=== PATIENT | female | born 1975 | race Caucasian/White ===

== ENCOUNTER 2019-05-19 15:38 | Emergency (ER) | payer SELFPAY ==
[~2019-05-19] VITALS: Ht 165.1 cm; Wt 62.0 kg
[2019-05-19] MEDS ORDERED: MORPHINE SULFATE 4 MG/ML CPJ (NOT FOR IM USE) IV STA (18:05)
[2019-05-19] MEDS ORDERED: SODIUM CHLORIDE 0.9% 1,000 ML IV ONE ×2 (18:05→21:11)
[2019-05-19] MEDS ORDERED: ONDANSETRON HCL 4MG/2ML INJ IV STA (18:05)
[2019-05-19 18:19] LABS: CHLORIDE 109 mEq/L (98-107)
[2019-05-19 18:21] LABS: HCG SCREEN NEGATIVE
[2019-05-19 18:23] LABS: BASOPHILS % 0.5 % (0.0-2.0); EOSINOPHILS % 1.2 % (0.0-5.0); HEMATOCRIT. 40.5 % (36.0-48.0); HEMOGLOBIN. 13.6 g/dL (12.0-16.0); MEAN CORPUSCULAR HEMOGLOBIN 30.2 pg (28.0-32.0); MEAN CORPUSCULAR VOLUME 90.2 fL (81.0-99.0); MEAN PLATELET VOLUME 8.9 fl (7.4-10.4); MONOCYTES % 5.7 % (2.0-8.0); NEUTROPHILS % 61.6 % (40.0-76.0); PLATELET 220 x1000/uL (130-400); RED BLOOD CELL COUNT 4.49 mill/uL (4.2-5.4); RED CELL DISTRIBUTION WIDTH 13.2 % (11.6-14.6)
[2019-05-19 18:24] LABS: PARTIAL THROMBOPLASTIN TIME 28.5 sec (23.4-31.0); PROTHROMBIN TIME 10.6 sec (9.6-11.0)
[2019-05-19] MEDS ORDERED: ONDANSETRON HCL 4MG/2ML INJ ONE (20:00)
[2019-05-19] MEDS ORDERED: ONDANSETRON HCL 4MG/2ML INJ IV ONE (20:00)
[2019-05-19 22:51] VITALS: BP 112/70
[2019-05-19] MEDS ORDERED: IOHEXOL-300 100 ML BOTTLE ONE (23:28)
== END 2019-05-19 22:53 | disposition home or self-care (01) ==
LOC: ER 16:03
DX: R07.89 Other chest pain (principal); M54.2 Cervicalgia; M54.5 Low back pain; M25.562 Pain in left knee; V43.62XA Car passenger injured in collision with other type car in traffic accident, initial encounter; W22.12XA Striking against or struck by front passenger side automobile airbag, initial encounter; Y93.89 Activity, other specified; Y92.488 Other paved roadways as the place of occurrence of the external cause
CPT/HCPCS: 36415; 70450; 71045; 71260; 72100; 72125; 73560; 74177; 80053; 83690; 84484; 84703; 85025; 85610; 85730; 93005; 96361; 96374; 96375; 96376; 99284; J2270; J2405; J7030; Q9967

== ENCOUNTER 2019-11-04 13:24 | Inpatient (IN) | payer BC, MEDICAID ==
[~2019-11-04] VITALS: Ht 165.1 cm; Wt 56.0 kg
[2019-11-04] MEDS ORDERED: LORAZEPAM 2MG/ML CPJ IV ONE (14:00)
[2019-11-04 14:09] LABS: BASOPHILS % 0.6 % (0.0-2.0); EOSINOPHILS % 1.5 % (0.0-5.0); HEMATOCRIT. 41.8 % (36.0-48.0); HEMOGLOBIN. 14.2 g/dL (12.0-16.0); LYMPHOCYTES % 38.4 % (20.0-50.0); MEAN CORPUSCULAR HEMOGLOBIN 30.5 pg (28.0-32.0); MEAN CORPUSCULAR VOLUME 89.7 fL (81.0-99.0); MEAN PLATELET VOLUME 8.5 fl (7.4-10.4); MONOCYTES % 10.2 % (2.0-8.0); NEUTROPHILS % 49.3 % (40.0-76.0); PLATELET 226 x1000/uL (130-400); RED BLOOD CELL COUNT 4.66 mill/uL (4.2-5.4); RED CELL DISTRIBUTION WIDTH 13.4 % (11.6-14.6)
[2019-11-04 14:14] LABS: CHLORIDE 107 mEq/L (98-107)
[2019-11-04] MEDS ORDERED: ALTEPLASE 100MG/VIAL IV NR (14:15)
[2019-11-04] MEDS ORDERED: *NO ASPIRIN X 24 HOURS XX SCH (14:15)
[2019-11-04] MEDS ORDERED: CONTAINER EMPTY IV SCH (14:16)
[2019-11-04] MEDS ORDERED: ALTEPLASE IV SCH (14:16)
[2019-11-04 14:17] LABS: HCG SCREEN NEGATIVE; PROTHROMBIN TIME 10.4 sec (9.6-11.0)
[2019-11-04 14:19] LABS: ETHANOL BLOOD < 10 mg/dL
[2019-11-04 14:21] LABS: LDL CHOLESTEROL 90 mg/dL (5-100)
[2019-11-04] MEDS ORDERED: IOHEXOL-350 100 ML BOTTLE ONE (15:24)
[2019-11-04 15:48] LABS: CLARITY URINE CLEAR (CLEAR); COLOR URINE YELLOW (YELLOW); KETONES URINE NEGATIVE (NEGATIVE); LEUKOCYTE ESTERASE URINE TRACE (NEGATIVE); NITRITE URINE NEGATIVE (NEGATIVE); OCCULT BLOOD URINE NEGATIVE (NEGATIVE); PH URINE 7.5 (4.5-8.0); PROTEIN URINE NEGATIVE (NEGATIVE); SPECIFIC GRAVITY URINE 1.004 (1.005-1.030); UROBILINOGEN URINE 0.2 E.U./dL (0.2-1.0)
[2019-11-04 16:06] LABS: *AMPHETAMINES SCREEN URINE NEGATIVE (NEGATIVE); *BARBITURATES SCREEN URINE NEGATIVE (NEGATIVE); *BENZODIAZEPINES SCREEN URINE NEGATIVE (NEGATIVE); *COCAINE SCREEN URINE NEGATIVE (NEGATIVE); METHADONE URINE SCREEN NEGATIVE (NEGATIVE); OPIATES URINE SCREEN NEGATIVE (NEGATIVE)
[2019-11-04 16:07] LABS: CANNABINOID URINE SCREEN NEGATIVE (NEGATIVE); PHENCYCLIDINE URINE SCREEN NEGATIVE (NEGATIVE)
[2019-11-05] VITALS (55 sets, daily range): BP systolic 78–126; BP diastolic 48–72
[2019-11-05] MEDS: DEXT 5%/0.45% NACL 1000ML 1,000 ML IV SCH ×2 (05:23→18:01)
[2019-11-05 07:53] LABS: CHLORIDE 109 mEq/L (98-107)
[2019-11-05 07:58] LABS: HEMATOCRIT 41.5 % (36.0-48.0); HEMOGLOBIN 14.2 g/dL (12.0-16.0); MEAN CORPUSCULAR HEMOGLOBIN 30.9 pg (28.0-32.0); MEAN CORPUSCULAR VOLUME 90.3 fL (81.0-99.0); PLATELET 212 x1000/uL (130-400); RED BLOOD CELL COUNT 4.59 mill/uL (4.2-5.4); RED CELL DISTRIBUTION WIDTH 13.4 % (11.6-14.6)
[2019-11-05 08:00] LABS: LDL CHOLESTEROL 89 mg/dL (5-100)
[2019-11-05 08:01] LABS: HDL CHOLESTEROL 58 mg/dL (40-59)
[2019-11-05 08:03] LABS: T4 FREE 0.95 ng/dL (0.76-1.46)
[2019-11-05] MEDS: PANTOPRAZOLE SODIUM 40 MG/VIAL IV SCH (09:12)
[2019-11-05] MEDS ORDERED: ONDANSETRON HCL 4MG/2ML INJ IV PRN (13:00)
[2019-11-05] MEDS ORDERED: LORAZEPAM 2MG/ML CPJ IV PRN (13:00)
[2019-11-05] MEDS ORDERED: ACETAMINOPHEN 325MG TABLET PO PRN (13:00)
[2019-11-05] MEDS ORDERED: HYDRALAZINE 20MG/ML VIAL IV PRN (13:00)
[2019-11-05] MEDS ORDERED: MORPHINE SULFATE 2 MG/ML CPJ (NOT FOR IM USE) IV PRN (13:00)
[2019-11-05] MEDS ORDERED: ACETAMINOPHEN 650MG SUPP PR PRN (13:00)
[2019-11-05] MEDS ORDERED: DIPHENHYDRAMINE 50MG/ML VIAL IV PRN (13:00)
[2019-11-05] MEDS ORDERED: ATORVASTATIN CALCIUM 10MG TABLET PO SCH (21:00)
[2019-11-06] VITALS (28 sets, daily range): BP systolic 80–123; BP diastolic 55–76
[2019-11-06 05:37] LABS: HEMATOCRIT 40.6 % (36.0-48.0); MEAN CORPUSCULAR HEMOGLOBIN 31.1 pg (28.0-32.0); MEAN CORPUSCULAR VOLUME 89.8 fL (81.0-99.0); PLATELET 207 x1000/uL (130-400); RED BLOOD CELL COUNT 4.52 mill/uL (4.2-5.4); RED CELL DISTRIBUTION WIDTH 13.2 % (11.6-14.6)
[2019-11-06 05:48] LABS: CHLORIDE 106 mEq/L (98-107)
[2019-11-06] MEDS: PANTOPRAZOLE SODIUM 40 MG/VIAL IV SCH (08:19)
[2019-11-06] MEDS: DEXT 5%/0.45% NACL 1000ML 1,000 ML IV SCH (08:20)
[2019-11-06] MEDS ORDERED: ASPIRIN 81MG TABLET PO SCH (09:00)
[2019-11-06] MEDS ORDERED: HYDROCODONE/ACETAMINOPHEN 5/325MG TABLET PO PRN (11:00)
[2019-11-06] MEDS ORDERED: ASPI-1497 MT (15:43)
== END 2019-11-06 18:00 | disposition home or self-care (01) | DRG 71 ==
LOC: ER 13:31 → EDBEDREQSVC 17:01 → EDBEDREQ 17:32 → EDBEDREQTM 17:32 → EDBEDREQ 19:31 → ENRESERV 11-05 03:11 → MICUSO 11-05 03:55
PROVIDERS: ADMIT Internal Medicine; ATTEND Internal Medicine
DX: G93.40 Encephalopathy, unspecified (principal); R45.851 Suicidal ideations; F41.9 Anxiety disorder, unspecified; F32.9 Major depressive disorder, single episode, unspecified; M47.812 Spondylosis without myelopathy or radiculopathy, cervical region
CPT/HCPCS: 36415; 70496; 70498; 70551; 71045; 72141; 80048; 80053; 80061; 80305; 80320; 81003; 82962; 83036; 83721; 84439; 84443; 84484; 84703; 85025; 85027; 93005; 93970; 99291; C9113; J2060; J2997; J7060; Q9967; G0480